=== PATIENT | female | born 1990 | race Caucasian/White ===

== ENCOUNTER 2022-12-24 09:37 | Inpatient (IN) ==
[2022-12-24] MEDS ORDERED: LIDOCAINE 1% LOCAL 20 ML VIAL INFIL PRN (10:27)
[2022-12-24] MEDS ORDERED: OXYTOCIN 30 UNITS/500 ML BAG IV PRN ×2 (10:27→23:51)
--- NOTE | 2022-12-24 10:31 | History & Physical Report ---
Date of Service December 24, 2022 Assessment & Plan (1) Supervision of normal intrauterine in primigravida: Plan: Admit to L&D. EFM/toco. Labs. Patient would prefer to avoid epidural if possible. History of Present Illness Chief Complaint: labor Primary Care Provider: Yuan Rocha DO 32yo @ 40 4/7, presented with contractions since 3am, getting worse throughout the morning. + movment, no vaginal bleeding. No leaking fluid. Ctx about every 2 minutes. Concerned about vulvodynia - requesting minimal cervical exams because exams are difficult. Hypothyroidism in *TSH Q 4 wks. Uterine Fibroid found on NOB visit *fibroid measures 2.2x3.0x2.5cm Allergies Allergy/AdvReac Type Severity Reaction Status Date / Time Sulfa (Sulfonamide Allergy Verified 12/17/22 09:03 Antibiotics) Home Medications Medication Instructions Recorded Confirmed Type cholecalciferol (vitamin D3) PO 08/28/22 12/17/22 History iodine PO 08/28/22 12/17/22 History magnesium PO 08/28/22 12/17/22 History prenat.vits,brain,oqg-vxfz-qjtln 1 tab PO DAILY 08/28/22 12/17/22 History breast pump #1 ea 10/15/22 12/17/22 Rx ferrous sulfate [Iron (ferrous PO 10/15/22 12/17/22 History sulfate)] levothyroxine 25 mcg capsule 75 mcg PO DAILY 10/15/22 12/17/22 History thyroid (pork) 60 mg tablet 60 mg PO DAILY 10/15/22 12/17/22 History ([place] Thyroid) Patient History Surgical History S/P wisdom tooth extraction Family History Grandmother (Maternal) Diabetes Social History Smoking Status: Never smoker Second Hand Exposure: No; Do You Dip or Chew Tobacco: No; Tobacco Cessation Education Requested by Patient: No Hx Alcohol Use: No Hx Substance Use: No Preferred Language: Polish Communication Ability: Effective 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 Beliefs That Will Affect Care: None marital status: marital status details: Chris (34) [phone] Current Living Situation: Spouse Current Living Situation Comment: Sourav- current occupational status: unemployed Other Information That Helps Us Care for You: No Feels Safe at Home: Yes Safety Concerns: Feels Safe At This Time Assistive Devices: Glasses Review of Systems All systems reviewed & are unremarkable except as noted in HPI & below Physical Exam Physical Exam: FHT Cat 1 [place] Q 2 SVE 6/100/-1 Constitutional: WD/WN, vitals as above Respiratory: normal respiratory effort, lungs clear to auscultation no respiratory distress Cardiovascular: Rate/Rhythm: regular rate and regular rhythm Gastrointestinal (Abdomen): Inspection/Auscultation: abdomen normal to inspection Percussion/Palpation: abdomen soft; abdomen nontender Gravid. No s/s chorio or abruption. Skin: no rashes, warm and dry Psychiatric: A+Ox3, euthymic affect Results & Data ([facility]) Vital Signs (Past 12 Hours) Vital Signs Temp Pulse Resp BP 12/24/22 10:11 36.5 C 20 130/78 12/24/22 09:52 95 H 130/78 Coding Level of Care Code None Diagnoses Supervision of normal intrauterine in primigravida Z34.00
[2022-12-24] MEDS: LACTATED RINGER'S 1,000 ML IV PRN ×2 (10:57→15:24)
[2022-12-24 11:21] LABS: Hemoglobin 12.4 g/dl (12.0-16.0); Mean Corpuscular Hemoglobin 34.2 pg (25.0-34.0); Mean Corpuscular Hgb Conc 36.5 g/dL (32.0-36.0); Mean Corpuscular Volume 93.7 fL (80.0-100.0); Mean Platelet Volume 12.4 fL (9.4-12.4); Platelet Count 119 K/uL (130-400); RDW Coefficient of Variation 12.4 % (11.5-14.5); RDW Standard Deviation 43.2 fL (36.4-46.3); Red Blood Count 3.63 M/uL (4.20-5.40); White Blood Count 14.81 K/ul (4.8-10.8)
[2022-12-24] MEDS ORDERED: CALCIUM CARBONATE 500 MG CHEWABLE TAB PO STA (12:13)
--- NOTE | 2022-12-24 14:00 | Labor Progress Brief Note ---
Date of Service December 24, 2022 Subjective uncomfortable but dealing Assessment & Plan (1) Normal labor: Plan Continue expectant management. fetus category one. Anticipate . Admission and Anticipated Discharge Date Admission Date: December 24, 2022 Physical Exam Physical Exam: cx--6-7/100/-1 toco--q2-4min efm--120s with mod variability, accels to 150s, no decels Results & Data ([facility]) Vital Signs (Past 12 Hours) Vital Signs Temp Pulse Resp BP 12/24/22 10:11 36.5 C 20 130/78 12/24/22 12:30 16 12/24/22 12:30 36.7 C 16 12/24/22 12:21 93 H 113/63 12/24/22 10:00 18 12/24/22 10:00 36.7 C 18 12/24/22 09:52 95 H 130/78 Coding Level of Care Code None Diagnoses Normal labor O80; Z37.9
[2022-12-24] MEDS ORDERED: BUTORPHANOL TARTRATE 1 MG/ML VIAL IV ONE (15:00)
[2022-12-24] MEDS ORDERED: CALCIUM CARBONATE 500 MG CHEWABLE TAB PO PRN (16:15)
[2022-12-24] MEDS ORDERED: ePHEDrine sulfate 50 MG/ML AMP ONE (16:22)
[2022-12-24] MEDS ORDERED: LIDOCAINE 2%/EPINEPHRINE 1:200,000 20 ML SDV ONE (16:23)
[2022-12-24] MEDS ORDERED: fentaNYL 2MCG/ML ROPIVACAINE 1.25MG/ML 100 ML BAG EPI ONE (16:23)
[2022-12-24] MEDS ORDERED: SODIUM CHLORIDE 0.9% INJ 10 ML VIAL ONE (16:23)
[2022-12-24] MEDS ORDERED: fentaNYL citrate 100 MCG/2 ML VIAL ONE (16:23)
[2022-12-24] MEDS ORDERED: BUPIVACAINE 0.25% 30 ML VIAL ONE (16:23)
[2022-12-24] MEDS ORDERED: ONDANSETRON INJ 2 MG/ML 2 ML VIAL IV PRN (16:58)
[2022-12-24] MEDS ORDERED: PROMETHAZINE HCL 6.25 MG in SODIUM CHLORIDE 0.9% 50 ML IV PRN (16:58)
[2022-12-24] MEDS ORDERED: NALBUPHINE HCL INJ 10 MG/ML AMP IV PRN (16:58)
[2022-12-24] MEDS ORDERED: ePHEDrine sulfate 50 MG/ML AMP IV PRN (16:58)
[2022-12-24] MEDS ORDERED: NALOXONE HCL 1 MG in SODIUM CHLORIDE 0.9% 1000ML 1,000 ML IV PRN (16:58)
[2022-12-24] MEDS ORDERED: NALOXONE HCL 0.4 MG/1 ML VIAL/CARP IV PRN (16:58)
[2022-12-24] MEDS ORDERED: diphenhydrAMINE 50 MG/ML VIAL IV PRN (16:58)
[2022-12-24] MEDS ORDERED: fentaNYL 2MCG/ML ROPIVACAINE 1.25MG/ML 100 ML BAG EPI PRN (16:58)
--- NOTE | 2022-12-24 16:58 | Anesthesiology Consultation ---
Date of Service December 24, 2022 Assessment & Plan Chart Review Chart Review: Patient NOT seen in Pre Admission Testing and Acceptable Risk for Labor Epidural Consults Requested none ASA ASA2 Proposed Anesthesia Anesthesia Type: Labor Epidural Risk / Benefits Reviewed With: PT / POA / Parent / Guardian, Accepts Plan and Informed Consent Obtained History Height/Weight Height: 5 ft 10 in Weight: 85.729 kg Allergies Allergy/AdvReac Type Severity Reaction Status Date / Time Sulfa (Sulfonamide Allergy Verified 12/17/22 09:03 Antibiotics) Medications Home Medications Medication Instructions Recorded Confirmed Last Taken prenat.vits,brain,nhd-wnop-vgafb 1 tab PO DAILY 08/28/22 12/17/22 Unknown breast pump #1 ea 10/15/22 12/17/22 Unknown ferrous sulfate [Iron (ferrous PO 10/15/22 12/17/22 Unknown sulfate)] thyroid (pork) 60 mg tablet 60 mg PO DAILY 10/15/22 12/17/22 Unknown ([place] Thyroid) Active Medications Generic Name Dose Route Start Last Admin Trade Name Freq PRN Reason Stop Dose Admin Calcium Carbonate 1,500 mg 12/24/22 16:15 12/24/22 16:25 Calcium Carbonate 500 Mg Chewable Tab PO 01/23/23 16:14 1,500 mg Q4 PRN Administration Indigestion Lactated Ringer's 1,000 mls @ 125 mls/hr 12/24/22 10:27 12/24/22 15:24 Lr IV 12/26/22 10:26 125 mls/hr .Q8H PRN Administration L&D Protocol Protocol Exercise / Class Metabolic Activity II 4-5 Yardwork/Stairs/Walk up hill Past Family History Family History Grandmother (Maternal) Diabetes Past Surgical History Surgical History S/P wisdom tooth extraction Past Anesthesia History No Hx of Anesthesia Complications and No Family Hx of Anesthesia Complications History of PONV No Hx of PONV and No Hx of Motion Sickness Social History Smoking Status: Never smoker Do You Dip or Chew Tobacco: No Hx Alcohol Use: No Hx Substance Use: No Physical Exam Vital Signs Last Vital Signs Temp 36.6 C 12/24/22 16:30 Pulse 100 H 12/24/22 16:55 Resp 18 12/24/22 15:45 BP 125/82 12/24/22 16:55 Pulse Ox 99 12/24/22 16:53 ENMT Mouth: no dentition abnormality Thyromental Distance: > or= 3.5 Finger Breadths Mallampati Class: II Neck normal visual inspection Respiratory normal respiratory effort Auscultation: lungs clear to auscultation bilaterally Cardiovascular Rate/Rhythm: regular rate and regular rhythm Psychiatric Orientation: alert Testing Laboratory Results 12/24/22 10:50
--- NOTE | 2022-12-24 19:38 | Labor Progress Brief Note ---
Date of Service December 24, 2022 Subjective comfortable Assessment & Plan (1) Normal labor: Plan begin second stage fetus category two with variables overall reassuring. anticipate Admission and Anticipated Discharge Date Admission Date: December 24, 2022 Physical Exam Physical Exam: cx--c/c/+1-2 toco--q2-3min efm--130s with mod variability, variables with contractions. Results & Data ([facility]) Vital Signs (Past 12 Hours) Vital Signs Temp Pulse Resp BP Pulse Ox 12/24/22 19:07 36.5 C 18 12/24/22 15:45 36.6 C 18 12/24/22 10:11 36.5 C 20 130/78 12/24/22 19:33 107 H 97 12/24/22 19:32 120 H 12/24/22 19:32 106 H 92/57 L 84 L 12/24/22 19:28 109 H 100 12/24/22 19:23 99 H 99 12/24/22 19:18 104 H 99 12/24/22 19:16 126 H 120/60 12/24/22 19:13 101 H 99 12/24/22 19:08 89 100 12/24/22 19:03 142 H 100 12/24/22 19:01 114 H 122/74 12/24/22 18:58 103 H 100 12/24/22 18:53 110 H 100 12/24/22 18:49 108 H 89 L 12/24/22 18:48 122 H 98 12/24/22 18:47 123 H 144/85 H 12/24/22 18:43 109 H 100 12/24/22 18:38 114 H 100 12/24/22 18:33 101 H 97 12/24/22 18:31 118 H 109/70 12/24/22 18:28 98 H 98 12/24/22 18:23 99 H 100 12/24/22 18:18 94 H 100 12/24/22 18:17 100 H 119/75 12/24/22 18:13 100 12/24/22 18:13 91 H 12/24/22 18:13 100 H 115/73 12/24/22 18:10 18 12/24/22 18:10 36.8 C 18 12/24/22 18:08 97 H 100 12/24/22 18:03 103 H 100 12/24/22 18:02 88 89 L 12/24/22 17:58 100 H 100 12/24/22 17:53 119 H 100 12/24/22 17:48 91 H 100 12/24/22 17:47 90 107/56 L 12/24/22 17:43 90 100 12/24/22 17:38 88 98 12/24/22 17:33 85 100 12/24/22 17:31 91 H 117/60 12/24/22 17:28 88 100 12/24/22 17:23 85 100 12/24/22 17:18 89 100 12/24/22 17:13 90 100 12/24/22 17:10 107 H 93 12/24/22 17:08 99 H 100 12/24/22 17:03 104 H 100 12/24/22 16:58 95 H 100 12/24/22 16:55 100 H 125/82 12/24/22 16:53 100 H 99 12/24/22 16:52 110 H 12/24/22 16:52 98 H 124/87 93 12/24/22 16:49 100 H 117/80 12/24/22 16:48 98 H 100 12/24/22 16:43 97 H 100 12/24/22 16:38 93 H 97 12/24/22 16:37 105 H 89 L 12/24/22 16:33 91 H 98 12/24/22 16:30 36.6 C 12/24/22 16:28 88 98 12/24/22 16:23 102 H 98 12/24/22 16:18 92 H 96 12/24/22 16:16 93 H 93 12/24/22 16:13 86 97 12/24/22 16:08 80 98 12/24/22 16:07 95 H 91 12/24/22 16:03 83 99 12/24/22 15:58 103 H 100 12/24/22 15:53 99 H 100 12/24/22 15:43 92 H 122/61 12/24/22 14:53 103 H 126/66 12/24/22 13:56 36.7 C 12/24/22 12:30 16 12/24/22 12:30 36.7 C 16 12/24/22 12:21 93 H 113/63 12/24/22 10:00 18 12/24/22 10:00 36.7 C 18 12/24/22 09:52 95 H 130/78 Coding Level of Care Code None Diagnoses Normal labor O80; Z37.9
[2022-12-24] MEDS ORDERED: FAMOTIDINE 20 MG TAB PO ONE (19:42)
--- NOTE | 2022-12-24 21:07 | Labor Progress Brief Note ---
Date of Service December 24, 2022 Subjective Pushing with good effort Assessment & Plan (1) Normal labor: Plan Making slow but steady progress with good effort. Fetus overall reassuring. Admission and Anticipated Discharge Date Admission Date: December 24, 2022 Physical Exam Physical Exam: cx--c/c/+2-3 toco--q2-3min efm--150s with mod variability, small accels , variables with pushing Results & Data ([facility]) Vital Signs (Past 12 Hours) Vital Signs Temp Pulse Resp BP Pulse Ox 12/24/22 19:07 36.5 C 18 12/24/22 15:45 36.6 C 18 12/24/22 10:11 36.5 C 20 130/78 12/24/22 21:03 96 12/24/22 21:03 119 H 12/24/22 21:03 114 H 83 L 12/24/22 21:02 130 H 116/62 12/24/22 20:58 95 12/24/22 20:58 108 H 12/24/22 20:58 118 H 94 12/24/22 20:53 109 H 81 L 12/24/22 20:51 116 H 87 L 12/24/22 20:48 117 H 78 L 12/24/22 20:46 126 H 113/62 12/24/22 20:43 129 H 97 12/24/22 20:38 111 H 96 12/24/22 20:33 135 H 98 12/24/22 20:32 124 H 81 L 12/24/22 20:28 103 H 97 12/24/22 20:26 100 H 87 L 12/24/22 20:23 126 H 97 12/24/22 20:18 139 H 91 12/24/22 20:17 137 H 115/82 12/24/22 20:13 137 H 98 12/24/22 20:14 131 H 91 12/24/22 20:08 119 H 99 12/24/22 20:03 100 12/24/22 20:03 128 H 12/24/22 20:03 122 H 109/80 12/24/22 19:58 89 100 12/24/22 19:53 124 H 100 12/24/22 19:48 127 H 100 12/24/22 19:47 107 H 128/75 12/24/22 19:43 112 H 100 12/24/22 19:38 101 H 100 12/24/22 19:33 107 H 97 12/24/22 19:32 120 H 12/24/22 19:32 106 H 92/57 L 84 L 12/24/22 19:28 109 H 100 12/24/22 19:23 99 H 99 12/24/22 19:18 104 H 99 12/24/22 19:16 126 H 120/60 12/24/22 19:13 101 H 99 12/24/22 19:08 89 100 12/24/22 19:03 142 H 100 12/24/22 19:01 114 H 122/74 12/24/22 18:58 103 H 100 12/24/22 18:53 110 H 100 12/24/22 18:49 108 H 89 L 12/24/22 18:48 122 H 98 12/24/22 18:47 123 H 144/85 H 12/24/22 18:43 109 H 100 12/24/22 18:38 114 H 100 12/24/22 18:33 101 H 97 12/24/22 18:31 118 H 109/70 12/24/22 18:28 98 H 98 12/24/22 18:23 99 H 100 12/24/22 18:18 94 H 100 12/24/22 18:17 100 H 119/75 12/24/22 18:13 100 12/24/22 18:13 91 H 12/24/22 18:13 100 H 115/73 12/24/22 18:10 18 12/24/22 18:10 36.8 C 18 12/24/22 18:08 97 H 100 12/24/22 18:03 103 H 100 12/24/22 18:02 88 89 L 12/24/22 17:58 100 H 100 12/24/22 17:53 119 H 100 12/24/22 17:48 91 H 100 12/24/22 17:47 90 107/56 L 12/24/22 17:43 90 100 12/24/22 17:38 88 98 12/24/22 17:33 85 100 12/24/22 17:31 91 H 117/60 12/24/22 17:28 88 100 12/24/22 17:23 85 100 12/24/22 17:18 89 100 12/24/22 17:13 90 100 12/24/22 17:10 107 H 93 12/24/22 17:08 99 H 100 12/24/22 17:03 104 H 100 12/24/22 16:58 95 H 100 12/24/22 16:55 100 H 125/82 12/24/22 16:53 100 H 99 12/24/22 16:52 110 H 12/24/22 16:52 98 H 124/87 93 12/24/22 16:49 100 H 117/80 12/24/22 16:48 98 H 100 12/24/22 16:43 97 H 100 12/24/22 16:38 93 H 97 12/24/22 16:37 105 H 89 L 12/24/22 16:33 91 H 98 12/24/22 16:30 36.6 C 12/24/22 16:28 88 98 12/24/22 16:23 102 H 98 12/24/22 16:18 92 H 96 12/24/22 16:16 93 H 93 12/24/22 16:13 86 97 12/24/22 16:08 80 98 12/24/22 16:07 95 H 91 12/24/22 16:03 83 99 12/24/22 15:58 103 H 100 12/24/22 15:53 99 H 100 12/24/22 15:43 92 H 122/61 12/24/22 14:53 103 H 126/66 12/24/22 13:56 36.7 C 12/24/22 12:30 16 12/24/22 12:30 36.7 C 16 12/24/22 12:21 93 H 113/63 12/24/22 10:00 18 12/24/22 10:00 36.7 C 18 12/24/22 09:52 95 H 130/78 Coding Level of Care Code None Diagnoses Normal labor O80; Z37.9
[2022-12-24] MEDS ORDERED: DIPHTHERIA/TETANUS/PERTUSSIS 0.5mL SYR/VIAL (Age 7+yrs) IM ONE (23:51)
[2022-12-24] MEDS ORDERED: oxyCODONE/ACETAMINOPHEN 5mg/325mg TAB PO PRN (23:51)
[2022-12-24] MEDS ORDERED: METHYLERGONOVINE MALEATE 0.2 MG/ML AMP IM ONE (23:51)
[2022-12-24] MEDS ORDERED: BENZOCAINE 20% AER SPR 82.5 GM CAN EXT PRN (23:51)
[2022-12-24] MEDS ORDERED: ACETAMINOPHEN 325 MG TAB PO PRN (23:51)
[2022-12-24] MEDS ORDERED: miSOPROStoL 200 MCG TAB PR ONE (23:51)
[2022-12-24] MEDS ORDERED: HYDROCORTISONE ACETATE 25 MG SUPP PR PRN (23:51)
[2022-12-24] MEDS ORDERED: miSOPROStoL 200 MCG TAB ONE (23:57)
[2022-12-24] MEDS ORDERED: METHYLERGONOVINE MALEATE 0.2 MG/ML AMP ONE (23:57)
--- NOTE | 2022-12-25 | Delivery Summary ---
Vaginal Delivery Summary Date of Service December 24, 2022 Vaginal Delivery Summary and 2nd Degree LAC (clitoral tear) Pre-operative Diagnosis: at 40 4/7 weeks. active labor Post-operative Diagnosis: same terminal meconium Procedure: epidural arom clitoral and first degree laceration and repair EBL: 500cc Anesthesia: epidural Procedure: The patient presented to labor and delivery in active labor. She was admitted and expectantly managed. Underwent arom for clear fluid. Eventually got epidural. Progressed to c/c/+1-2. Pushed for about an hour and then took a break for about an hour. Resumed pushing for another hour to deliver a viable male infant in brittni position. A large amount of thick meconium was delivered after the head. The anterior shoulder was then delivered easily and the rest of the infant was then delivered without difficulty. The baby was floppy. The cord was immediately clamped and cut and the infant was handed off to the awaiting nursing staff for evaluation. Cord blood and segment obtained. Placenta delivered spontaneous, intact with a three vessel cord. Cervix/sulci/rectum were intact. A first degree perineal laceration was repaired in the normal standard fashion. A clitoral laceration was also repaired with several interrupted sutures of 4-0. A red rubber catheter was placed in the urethra during this time. Hemostasis obtained with dilute pitocin and fundal massage, im methergine and rectal cytotec. Apgars were pending at the time of the note. Mother doing well at the end of the delivery. baby was transferred to the nursery after a successful resuscitation. [facility] Vaginal Delivery Charge Delivery Type Details: and 2nd Degree LAC (clitoral tear)
[2022-12-25 01:36] LABS: Base Excess Cord Venous Blood -6.4 mEq/L (-7.7-1.9); Cord Venous Blood HCO3 19 mmol/L (18.4-26.8); Cord Venous Blood PCO2 37 mmHg (30.4-57.2); Cord Venous Blood PO2 30 mmHg (14.1-43.3); Cord Venous Blood pH 7.32 (7.20-7.44); O2 Saturation Cord Venous Bld < 60.0 % (<68)
[2022-12-25] MEDS: IBUPROFEN 600 MG TAB PO PRN ×4 (04:23→20:18)
--- NOTE | 2022-12-25 06:10 | Obstetrical Progress Note ---
Date of Service <Natasha Shepard MD - Last Filed: 12/25/22 07:23> December 25, 2022 Assessment & Plan <Natasha Shepard MD - Last Filed: 12/25/22 07:23> (1) care following vaginal delivery: 32 y/o female presented in labor now PPD1. Rh pos, RI, GBS neg. Satisfactory post progress. Tolerating PO. Encourage ambulation after epidural removal. <Gricelda Henry MD, FACOG - Last Filed: 12/25/22 07:28> (1) care following vaginal delivery: Subjective <Natasha Shepard MD - Last Filed: 12/25/22 07:23> Voiding: no voiding problems Passing Gas:: Yes Diet Tolerance:: regular diet Lochia:: Small Feeding Type:: breast feeding epidural in place Physical Exam <Natasha Shepard MD - Last Filed: 12/25/22 07:23> Gen: well appearing female in NAD, epidural still in place HEENT: AT NC Resp: No increased work of breathing CV: clinically well perfused, no calf tenderness : uterine fundus firm, non-tender at the level of the umbilicus Results & Data ([facility]) <Natasha Shepard MD - Last Filed: 12/25/22 07:23> Vital Signs (Past 12 Hours) Vital Signs Temp Pulse Pulse Resp BP BP Pulse Ox 12/25/22 04:00 12/25/22 04:00 36.9 C 112 H 20 121/79 97 12/25/22 00:05 18 12/24/22 23:50 36.6 C 16 12/24/22 19:07 36.5 C 18 12/25/22 01:21 114 H 135/78 12/25/22 01:06 112 H 138/69 12/25/22 00:50 122 H 125/79 12/25/22 00:36 144 H 132/74 12/25/22 00:21 36.7 C 108 H 20 130/60 12/24/22 23:50 118 H 115/73 12/24/22 23:48 118 H 97 12/24/22 23:46 120 H 114/62 12/24/22 23:45 116 H 140/79 12/24/22 23:43 121 H 97 12/24/22 23:44 119 H 92 12/24/22 23:38 122 H 97 12/24/22 23:33 128 H 85 L 12/24/22 23:31 148 H 109/65 12/24/22 23:28 138 H 108/59 L 94 12/24/22 23:23 154 H 96 12/24/22 23:18 155 H 97 12/24/22 23:16 144 H 122/90 12/24/22 23:13 118 H 98 12/24/22 23:08 111 H 97 12/24/22 23:03 119 H 96 12/24/22 23:04 124 H 79 L 12/24/22 23:01 118 H 128/66 12/24/22 22:58 115 H 96 12/24/22 22:53 101 H 96 12/24/22 22:51 115 H 93 12/24/22 22:48 138 H 84 L 12/24/22 22:46 112 H 80 L 12/24/22 22:43 120 H 83 L 12/24/22 22:40 116 H 86 L 12/24/22 22:38 109 H 76 L 12/24/22 22:33 126 H 97 12/24/22 22:34 127 H 88 L 12/24/22 22:28 122 H 85 L 12/24/22 22:23 131 H 98 12/24/22 22:18 117 H 95 12/24/22 22:17 119 H 94 12/24/22 22:16 120 H 111/55 L 12/24/22 22:13 100 H 97 12/24/22 22:08 109 H 95 12/24/22 22:03 104 H 95 12/24/22 22:04 107 H 93 12/24/22 22:02 96 H 119/57 L 12/24/22 21:58 100 H 97 12/24/22 21:53 95 H 97 12/24/22 21:48 95 H 98 12/24/22 21:47 93 H 117/61 12/24/22 21:43 104 H 98 12/24/22 21:38 104 H 97 12/24/22 21:33 109 H 96 12/24/22 21:31 108 H 109/64 89 L 12/24/22 21:28 105 H 98 12/24/22 21:23 36.5 C 12/24/22 21:23 97 H 94 12/24/22 21:18 119 H 95 12/24/22 21:16 106 H 125/62 12/24/22 21:15 107 H 92 12/24/22 21:13 117 H 96 12/24/22 21:08 122 H 95 12/24/22 21:03 96 12/24/22 21:03 119 H 12/24/22 21:03 114 H 83 L 12/24/22 21:02 130 H 116/62 12/24/22 20:58 95 12/24/22 20:58 108 H 12/24/22 20:58 118 H 94 12/24/22 20:53 109 H 81 L 12/24/22 20:51 116 H 87 L 12/24/22 20:48 117 H 78 L 12/24/22 20:46 126 H 113/62 12/24/22 20:43 129 H 97 12/24/22 20:38 111 H 96 12/24/22 20:33 135 H 98 12/24/22 20:32 124 H 81 L 12/24/22 20:28 103 H 97 12/24/22 20:26 100 H 87 L 12/24/22 20:23 126 H 97 12/24/22 20:18 139 H 91 12/24/22 20:17 137 H 115/82 12/24/22 20:13 137 H 98 12/24/22 20:14 131 H 91 12/24/22 20:08 119 H 99 12/24/22 20:03 100 12/24/22 20:03 128 H 12/24/22 20:03 122 H 109/80 12/24/22 19:58 89 100 12/24/22 19:53 124 H 100 12/24/22 19:48 127 H 100 12/24/22 19:47 107 H 128/75 12/24/22 19:43 112 H 100 12/24/22 19:38 101 H 100 12/24/22 19:33 107 H 97 12/24/22 19:32 120 H 12/24/22 19:32 106 H 92/57 L 84 L 12/24/22 19:28 109 H 100 12/24/22 19:23 99 H 99 12/24/22 19:18 104 H 99 12/24/22 19:16 126 H 120/60 12/24/22 19:13 101 H 99 12/24/22 19:08 89 100 12/24/22 19:03 142 H 100 12/24/22 19:01 114 H 122/74 12/24/22 18:58 103 H 100 12/24/22 18:53 110 H 100 12/24/22 18:49 108 H 89 L 12/24/22 18:48 122 H 98 12/24/22 18:47 123 H 144/85 H 12/24/22 18:43 109 H 100 12/24/22 18:38 114 H 100 12/24/22 18:33 101 H 97 12/24/22 18:31 118 H 109/70 12/24/22 18:28 98 H 98 12/24/22 18:23 99 H 100 12/24/22 18:18 94 H 100 12/24/22 18:17 100 H 119/75 12/24/22 18:13 100 12/24/22 18:13 91 H 12/24/22 18:13 100 H 115/73 O2 Del Method 12/25/22 04:00 Room Air 12/25/22 04:00 Room Air 12/25/22 00:05 12/24/22 23:50 12/24/22 19:07 12/25/22 01:21 12/25/22 01:06 12/25/22 00:50 12/25/22 00:36 12/25/22 00:21 12/24/22 23:50 12/24/22 23:48 12/24/22 23:46 12/24/22 23:45 12/24/22 23:43 12/24/22 23:44 12/24/22 23:38 12/24/22 23:33 12/24/22 23:31 12/24/22 23:28 12/24/22 23:23 12/24/22 23:18 12/24/22 23:16 12/24/22 23:13 12/24/22 23:08 12/24/22 23:03 12/24/22 23:04 12/24/22 23:01 12/24/22 22:58 12/24/22 22:53 12/24/22 22:51 12/24/22 22:48 12/24/22 22:46 12/24/22 22:43 12/24/22 22:40 12/24/22 22:38 12/24/22 22:33 12/24/22 22:34 12/24/22 22:28 12/24/22 22:23 12/24/22 22:18 12/24/22 22:17 12/24/22 22:16 12/24/22 22:13 12/24/22 22:08 12/24/22 22:03 12/24/22 22:04 12/24/22 22:02 12/24/22 21:58 12/24/22 21:53 12/24/22 21:48 12/24/22 21:47 12/24/22 21:43 12/24/22 21:38 12/24/22 21:33 12/24/22 21:31 12/24/22 21:28 12/24/22 21:23 12/24/22 21:23 12/24/22 21:18 12/24/22 21:16 12/24/22 21:15 12/24/22 21:13 12/24/22 21:08 12/24/22 21:03 12/24/22 21:03 12/24/22 21:03 12/24/22 21:02 12/24/22 20:58 12/24/22 20:58 12/24/22 20:58 12/24/22 20:53 12/24/22 20:51 12/24/22 20:48 12/24/22 20:46 12/24/22 20:43 12/24/22 20:38 12/24/22 20:33 12/24/22 20:32 12/24/22 20:28 12/24/22 20:26 12/24/22 20:23 12/24/22 20:18 12/24/22 20:17 12/24/22 20:13 12/24/22 20:14 12/24/22 20:08 12/24/22 20:03 12/24/22 20:03 12/24/22 20:03 12/24/22 19:58 12/24/22 19:53 12/24/22 19:48 12/24/22 19:47 12/24/22 19:43 12/24/22 19:38 12/24/22 19:33 12/24/22 19:32 12/24/22 19:32 12/24/22 19:28 12/24/22 19:23 12/24/22 19:18 12/24/22 19:16 12/24/22 19:13 12/24/22 19:08 12/24/22 19:03 12/24/22 19:01 12/24/22 18:58 12/24/22 18:53 12/24/22 18:49 12/24/22 18:48 12/24/22 18:47 12/24/22 18:43 12/24/22 18:38 12/24/22 18:33 12/24/22 18:31 12/24/22 18:28 12/24/22 18:23 12/24/22 18:18 12/24/22 18:17 12/24/22 18:13 12/24/22 18:13 12/24/22 18:13 Laboratory Results 12/25/22 05:50 <Gricelda Henry MD, FACOG - Last Filed: 12/25/22 07:28> Co-Signing Physician Notes Resident Physician Supervision Note: I interviewed and examined the patient. Discussed with Dr. Shepard and agree with findings and plan as documented in the note. Any exceptions or clarifications are listed here: Doing well. Routine care. Documented By: Gricelda Henry MD, FACOG Resident Activity Tracking <Natasha Shepard MD - Last Filed: 12/25/22 07:23> Resident Involvement: Resident Care Provided Care Provided: OB Delivery
[2022-12-25 06:25] LABS: Hematocrit (blood only) 30.8 % (37.0-47.0); Hemoglobin 11.1 g/dl (12.0-16.0)
[2022-12-25] MEDS: PRENATAL VITAMIN 1 TAB PO SCH (08:41)
[2022-12-25] MEDS: DOCUSATE SODIUM 100 MG CAP PO SCH ×2 (08:41→20:18)
--- NOTE | 2022-12-25 10:48 | Anesthesia Procedure Note ---
Date of Service December 25, 2022 Anesthesia Post Epidural Note Vital Signs Vital Signs: Temp Pulse Resp BP Pulse Ox O2 Del Method 98.2 F 110 H 18 109/66 99 Room Air 12/25/22 07:39 12/25/22 07:39 12/25/22 07:39 12/25/22 07:39 12/25/22 07:39 12/25/22 07:39 Pain Intensity Neck: Pain Intensity: 3 Notes Mental Status: alert / awake / arousable and participated in evaluation Nausea / Vomiting: adequately controlled Pain: adequately controlled Airway Patency, RR, SpO2: stable & adequate BP & HR: stable & adequate Hydration State: stable & adequate Neuraxial Anesthesia: was administered and sensory block is resolving Anesthetic Complications: no major complications apparent and Pt Satisfied with anesthetic care Epidural: Removed without complications and With tip intact
[2022-12-25] MEDS: LEVOTHYROXINE SODIUM 75 MCG TABLET PO SCH (15:40)
[2022-12-25] MEDS: ARMOUR THYROID 30 MG TAB PO SCH (15:40)
[2022-12-25] MEDS ORDERED: bisacodyL 5 MG TABEC PO SCH (20:00)
[2022-12-26] MEDS: IBUPROFEN 600 MG TAB PO PRN ×3 (00:22→15:08)
--- NOTE | 2022-12-26 05:15 | Obstetrical Progress Note ---
Date of Service <Natasha Shepard MD - Last Filed: 12/26/22 07:14> December 26, 2022 Assessment & Plan <Natasha Shepard MD - Last Filed: 12/26/22 07:14> (1) care following vaginal delivery: 32 y/o female presented in labor now PPD2. Rh pos, RI, GBS neg. Satisfactory post progress. Tolerating PO. Encourage ambulation. <Angela Leon MD - Last Filed: 12/26/22 08:07> (1) care following vaginal delivery: Subjective <Natasha Shepard MD - Last Filed: 12/26/22 07:14> Ambulation: ambulating normally Voiding: no voiding problems Passing Gas:: Yes Diet Tolerance:: regular diet Lochia:: Small Feeding Type:: breast feeding Physical Exam <Natasha Shepard MD - Last Filed: 12/26/22 07:14> Gen: well appearing female in NAD HEENT: AT NC Resp: CTAB no increased work of breathing CV: RRR no m/r/g clinically well perfused, no calf tenderness : uterus firm, non-tender at the level of the umbilicus Psych: appropriate mood and affect Neuro: alert and oriented Results & Data ([facility]) <Natasha Shepard MD - Last Filed: 12/26/22 07:14> Vital Signs (Past 12 Hours) Vital Signs Temp Pulse Resp BP Pulse Ox O2 Del Method 12/26/22 04:45 36.6 C 93 H 18 110/68 99 Room Air 12/26/22 00:20 36.5 C 93 H 18 107/72 99 Room Air 12/25/22 20:15 36.8 C 98 H 18 124/64 98 Room Air Laboratory Results 12/25/22 05:50 <Angela Leon MD - Last Filed: 12/26/22 08:07> Co-Signing Physician Notes Resident Physician Supervision Note: I interviewed and examined the patient. Discussed with Dr. Shepard and agree with findings and plan as documented in the note. Any exceptions or clarifications are listed here: PP2 s/p , doing well. VSS, exam benign and wnl. Stable for d/c home Documented By: Angela Leon MD Resident Activity Tracking <Natasha Shepard MD - Last Filed: 12/26/22 07:14> Resident Involvement: Resident Care Provided Care Provided: OB Delivery
[2022-12-26] MEDS: LEVOTHYROXINE SODIUM 75 MCG TABLET PO SCH (07:07)
[2022-12-26] MEDS: PRENATAL VITAMIN 1 TAB PO SCH (09:24)
[2022-12-26] MEDS: DOCUSATE SODIUM 100 MG CAP PO SCH (09:24)
[2022-12-26] MEDS: ARMOUR THYROID 30 MG TAB PO SCH ×2 (09:24→10:40)
[2022-12-26] MEDS ORDERED: bisacodyL 10 MG SUPP PR PRN (23:51)
== END 2022-12-26 18:00 | disposition home or self-care (01) | DRG 807 ==
LOC: OPB 09:37 → 4S1 09:41 → 4E2 12-25 01:38